=== PATIENT | male | born 1975 | race Caucasian/White ===

== ENCOUNTER → 2019-08-14 | Outpatient (CLI) | payer BC ==
--- NOTE | 2019-08-14 15:19 | CONS ---
CONSULTATION Consultation note for sleep apnea. 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 The patient has lots to follow up for the past 4 years. His initial evaluation was done by Dr. Momin and decided to come in and establish himself with me in the office. He is doing well. He is wearing his CPAP every night. In fact, he has purchased one CPAP the unit and he has also purchased his soaking system. He wears his CPAP every night and based on the compliance data, the patient has been utilizing the CPAP more than 4 hours 100% of the time with a leak of 7 L/minute and AHI while treatment being as low as 0.9 per hour. He is currently using AirFit P10 medium-size pillows. Doing extremely well. No major hypersomnia or sleepiness during the day. No snoring while on the CPAP treatment, no restlessness, no nightmares, no sleepwalking, no sleep talking. No agitation, no discomfort, no other complaints otherwise. PAST MEDICAL HISTORY: 1. Obstructive sleep apnea. 2. History of environmental allergies. 3. History of chronic sinus disease. 4. Arthritis. SURGICAL HISTORY: Includes tonsillectomy and ankle surgery. DRUG ALLERGIES: Not known. OUTPATIENT MEDICATION: For this. None. SOCIAL HISTORY: Nonsmoker. No history of alcoholism or IV drugs. He is a social alcohol drinker. FAMILY HISTORY: Positive for sleep apnea in his father. REVIEW OF SYSTEMS: A 14-point review of system was done. No excessive fatigue or sleepiness, no snoring while on CPAP treatment, no reported apneas while on CPAP therapy. No insomnia, no choking or gasping for air. No grinding of the teeth. No sleepwalking or dry mouth. No anxiety, no panic attacks, no palpitation, no heartburn, no sweating. no sleep no anxiety no claustrophobia no sexual dysfunction. No issues with memory and concentration or trouble falling asleep during day-to-day activities. PHYSICAL EXAMINATION: VITAL SIGNS: BP is 123/83, pulse 83, respirations 16, temperature 98.4, saturation 99% on room air. Neck size 18.5 inches. GENERAL APPEARANCE: Calm, comfortable. HEAD: Atraumatic, normocephalic. NECK: Supple. There is no JVD. No goiter or neck masses. Mallampati class IV. LUNGS: Clear to auscultation. HEART: Sounds regular rate and rhythm. Normal S1, S2. No S3, S4. No murmurs. ABDOMEN: Soft, nontender. No organomegaly. EXTREMITIES: No edema. No cyanosis or clubbing. NEUROLOGICALLY: Awake, alert, and there are no focal neurological deficits. PSYCHIATRIC: Negative for anxiety or depression. IMPRESSION: 1. Severe obstructive sleep apnea with an apnea-hypopnea index of 58, currently on a CPAP pressure of 9. 2. Hypersomnia, recovered. 3. Obesity with interval weight gain in the order of 8 pounds, current BMI 33. 4. Environmental allergies. PLAN: 1. I renewed the patient's CPAP supplies to [employer]. I am going to renew the AirFit P10 nose mask, medium size. Renew the supplies, including filters, tubings and offer the patient new tubing. 2. Encourage weight loss. 3. Optimize sleep hygiene measures. 4. See me back in 2 years' time in followup, earlier if needed. For now, treatment is successful, no need for any adjustment in the pressure setting or any change in his mask interface. Refills were given. MMODL / IJN: [id number] /
== END | disposition home or self-care (01) ==
LOC: SLEEP 13:24
PROVIDERS: ATTEND Internal Medicine Critical Care Medicine
DX: G47.33 Obstructive sleep apnea (adult) (pediatric) (principal); E66.9 Obesity, unspecified; Z68.33 Body mass index [BMI] 33.0-33.9, adult; T78.49XA Other allergy, initial encounter; Z99.89 Dependence on other enabling machines and devices
CPT/HCPCS: 99211